=== PATIENT | female | born 2000 | race Hispanic/Latino ===

== ENCOUNTER 2020-03-12 15:34 | Emergency (ER) | payer BC, OTHER ==
[2020-03-12] MEDS ORDERED: LIDOCAINE 1% 20 ML MDV ONE (16:27)
--- NOTE | 2020-03-12 17:02 | ER ---
Nurse's Notes [facility] Name: Melissa Jackson Age: 19 yrs Sex: Female : 2000 Arrival Date: 03/12/2020 Time: 15:36 Bed 6 Private MD: Diagnosis: Laceration of the Right Thigh Presentation: 03/12 15:50 Chief complaint: Patient states: "I was cutting foam board with an exacto knife and jd3 accidently cut my right leg.". Coronavirus screen: At this time, the client does not indicate any symptoms associated with coronavirus-19. Ebola Screen: Patient negative for fever greater than or equal to 101.5 degrees Fahrenheit, and additional compatible Ebola Virus Disease symptoms. Complicating Factors: There are no complicating factors for this patient. Initial Sepsis Screen: Does the patient meet any 2 criteria? No. Patient's initial sepsis screen is negative. Does the patient have a suspected source of infection? No. Patient's initial sepsis screen is negative. Risk Assessment: Do you want to hurt yourself or someone else? Patient reports no desire to harm self or others. Onset of symptoms was March 12, 2020. 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 - Social history:: Smoking status: Patient denies any tobacco usage or history of. Screenin:00 Abuse screen: Denies threats or abuse. Denies injuries from another. Nutritional jl7 screening: No deficits noted. Tuberculosis screening: No symptoms or risk factors identified. Fall Risk None identified. Assessment: 16:00 General: Appears in no apparent distress. uncomfortable, Behavior is calm, cooperative, jl7 appropriate for age. Pain: Complains of pain in right quadriceps Pain currently is 1 out of 10 on a pain scale. Neuro: Level of Consciousness is awake, alert, obeys commands, Oriented to person, place, time, situation. Cardiovascular: Patient's skin is warm and dry. Respiratory: Airway is patent Respiratory effort is even, unlabored, Respiratory pattern is regular, symmetrical. Derm: Skin is pink, warm \\T\\ dry. Musculoskeletal: Range of motion: intact in all extremities. Injury Description: Laceration sustained to right quadriceps is superficial, 2.6 to 7.5 cm long, was sustained 30-60 minutes ago. is bleeding no active bleeding noted. Vital Signs: 15:52 BP 101 / 75; Pulse 67; Resp 17 S; Temp 98.7(O); Pulse Ox 97% on R/A; Weight 84.82 kg jd3 (R); Height 5 ft. 6 in. (167.64 cm) (R); Pain /10; 15:52 Body Mass Index 30.18 (84.82 kg, 167.64 cm) jd3 ED Course: 15:36 Patient arrived in ED. ag5 15:51 Triage completed. jd3 15:52 Arm band placed on. jd3 15:57 Ted Hart PA is PHCP. [facility] 15:57 Obinna Bajwa MD is Attending Physician. [facility] 15:58 Luz Maria Alexander, RN is Primary Nurse. rb1 16:00 Patient has correct armband on for positive identification. Bed in low position. Call jl7 light in reach. Side rails up X 1. Pulse ox on. NIBP on. 16:17 Geneva Abdullahi, RN is Primary Nurse. jl7 16:30 Assist provider with laceration repair on right quadriceps that was between 2.6 to 7.5 jl7 cm using sutures. Set up tray. Performed by Ted PÉREZ Dressed with band aid, Patient tolerated well. 17:06 Patient did not have IV access during this emergency room visit. jl7 Administered Medications: 16:30 Drug: Lidocaine (1 %) 20 ml {Note: administered by BETO Jean.} Volume: 20 ml; Route: jl7 Infiltration; 17:10 Follow up: Response: No adverse reaction jl7 Outcome: 17:02 Discharge ordered by . julianna 17:09 Discharged to home ambulatory, with family. jl7 17:09 Condition: stable 17:09 Discharge instructions given to patient, family, Instructed on discharge instructions, follow up and referral plans. Demonstrated understanding of instructions, follow-up care. 17:10 Patient left the ED. jl7 Signatures: Ted Hart PA PA jmm Barber, Rebecca RN RN rb1 Geneva Abdullahi RN RN jl7 Shady Lamb RN RN jd3 Jaspreet, [facility]
--- NOTE | 2020-03-12 17:02 | EDPHYS ---
Physician Documentation [facility] Name: Melissa Jackson Age: 19 yrs Sex: Female : 2000 Arrival Date: 03/12/2020 Time: 15:36 Bed 6 Private MD: ED Physician Obinna Bajwa HPI: 03/12 16:04 This 19 yrs old Female presents to ER via Wheelchair with complaints of jmm Laceration To Leg. 16:04 The patient has a laceration occurred at home. Onset: The symptoms/episode jmm began/occurred acutely, just prior to arrival. Associated signs and symptoms: Pertinent positives: Pertinent negatives: dizziness, heavy bleeding, loss of consciousness. This is a 19 year old female with no chronic medical conditions that presents to the ED with complaints of laceration to her right thigh. Patient states she accidently cut her self with an exacto knife. . 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 - Social history:: Smoking status: Patient denies any tobacco usage or history of. ROS: 16:04 Constitutional: Negative for fever, chills, and weight loss, Cardiovascular: Negative jmm for chest pain, palpitations, and edema, Respiratory: Negative for shortness of breath, cough, wheezing, and pleuritic chest pain. 16:04 MS/extremity: Positive for injury or acute deformity, laceration. 16:04 Skin: Positive for laceration(s). 16:04 All other systems are negative. Exam: 16:04 Constitutional: This is a well developed, well nourished patient who is awake, alert, jmm and in no acute distress. Head/Face: atraumatic. Eyes: EOMI, no conjunctival erythema appreciated ENT: Moist Mucus Membranes Neck: Trachea midline, Supple Chest/axilla: Normal chest wall appearance and motion. Cardiovascular: Regular rate and rhythm. No edema appreciated Respiratory: Normal respirations, no respiratory distress appreciated Abdomen/GI: Non distended, soft Back: Normal ROM 16:04 Musculoskeletal/extremity: ROM: intact in all extremities. 16:04 Skin: 4 cm laceration noted to the right thigh. 16:04 Neuro: Orientation: is normal, Mentation: is normal, Memory: is normal. 16:04 Psych: Behavior/mood is pleasant, cooperative. Vital Signs: 15:52 BP 101 / 75; Pulse 67; Resp 17 S; Temp 98.7(O); Pulse Ox 97% on R/A; Weight 84.82 kg jd3 (R); Height 5 ft. 6 in. (167.64 cm) (R); Pain /10; 15:52 Body Mass Index 30.18 (84.82 kg, 167.64 cm) jd3 Laceration: 17:00 Wound Repair of 4cm ( 1.6in ) subcutaneous laceration to right quadriceps. Distal jmm neuro/vascular/tendon intact. Anesthesia: Local anesthetic administered with 5 mls of 1% lidocaine. Wound prep: Moderate cleansing with betadine by me. Skin closed with 5 4-0 Prolene using simple sutures and sterile technique. Patient tolerated well. MDM: 16:04 Patient medically screened. [facility] 17:00 Data reviewed: vital signs, nurses notes. Counseling: I had a detailed discussion with julianna the patient and/or guardian regarding: the historical points, exam findings, and any diagnostic results supporting the discharge/admit diagnosis, the need for outpatient follow up, to return to the emergency department if symptoms worsen or persist or if there are any questions or concerns that arise at home. ED course: Patient is alert and non toxic in appearance in the ED. Mother and patient given strict return precautions. Mother understood and agrees with the plan of care. . 03/12 16:20 Order name: Dressing - Wound; Complete Time: 16:20 jl7 03/12 16:20 Order name: Gloves, Sterile; Complete Time: 16:20 jl7 03/12 16:20 Order name: Setup Suture Tray; Complete Time: 16:20 jl7 Administered Medications: 16:30 Drug: Lidocaine (1 %) 20 ml {Note: administered by PA. Ted} Volume: 20 ml; Route: jl7 Infiltration; 17:10 Follow up: Response: No adverse reaction jl7 Disposition: 03/13 07:15 Co-signature as Attending Physician, Obinna Bajwa MD I agree with the assessment and irwin plan of care. Disposition: 03/12/20 17:02 Discharged to Home. Impression: Laceration of the Right Thigh. - Condition is Stable. - Discharge Instructions: Laceration Care, Adult. - Medication Reconciliation Form, Thank You Letter, Antibiotic Education, Prescription Opioid Use form. - Follow up: Private Physician; When: 1 week; Reason: Recheck today's complaints, Continuance of care, Staple/Suture removal, Re-evaluation by your physician. Signatures: Obinna Bajwa MD MD cha Mickail, Joel, PA PA jmm Leal, Jahala RN RN jl7 Shady Lamb RN RN jd3 Corrections: (The following items were deleted from the chart) 03/12 17:10 17:02 03/12/2020 17:02 Discharged to Home. Impression: Laceration of the Right Thigh. jl7 Condition is Stable. Forms are Medication Reconciliation Form, Thank You Letter, Antibiotic Education, Prescription Opioid Use. Follow up: Private Physician; When: 1 week; Reason: Recheck today's complaints, Continuance of care, Staple/Suture removal, Re-evaluation by your physician. julianna
[2020-03-12 17:21] VITALS: BP 101/75; TEMP 98.7; O2SAT 97
--- OUTSIDE RECORDS SUMMARY | 2020-03-16 01:23 | XMS REPORT | Summary of Care ---
:2000 Author Organization [facility] Address [address] [place] [id number] Care Team Providers Name Role Phone Pcp, Does Not Have A Primary Care Provider Reason for Visit Reason Comments Exposure LAB Encounter Details Date Type Department Care Team Description 12/17/2019 Laboratory Only [facility] Family Orestes Mendoza, RECEPTION AGENT [address] [place] [address] Suspected 2019 [facility] - [facility], Adc Fam Pob I Coronavirus [address] [facility] Infection ([address] Dx) [place] [address] Allergies Not on Filedocumented as of this encounter (statuses as of 12/17/2019) Medications Not on filedocumented as of this encounter (statuses as of 12/17/2019) Active Problems Not on filedocumented as of this encounter (statuses as of 12/17/2019) Social History Tobacco Use Types Packs/Day Years Used Date Never Assessed Sex Assigned at Date Recorded Not on file Job Start Date Occupation Industry Not on file Not on file Not on file Travel History Travel Start Travel End No recent travel history available. COVID-19 Exposure Response Date Recorded In the last month, have you been in contact with Yes 12/17/2019 2:13 PM CDT someone who was confirmed or suspected to have Coronavirus / COVID-19? documented as of this encounter Last Filed Vital Signs Not on filedocumented in this encounter Plan of Treatment Name Type Priority Associated Diagnoses Order S nielsle COVID-19 (PCR MOLECULAR LAB Routine Suspected 2019 No elizabeth Ordered: 12/17/2019 TESTING) Coronavirus Infection Health Maintenance Due Date Last Done Comments VARICELLA VACCINES (1 of 2 - 2-dose 08/27/2000 childhood series) MENINGOCOCCAL B VACCINES (1 of 2 - 08/27/2009 Risk Bexsero 2-dose series) DTaP,Tdap,and Td Vaccines (1 - 08/27/2010 Tdap) HPV VACCINES (1 - Female 2-dose 08/27/2010 series) Depression Screening 2011 WELL CARE VISIT: 12-21 YEARS 2011 (yearly) CHLAMYDIA SCREENING 2015 INFLUENZA VACCINE (#1) 2020 MENINGOCOCCAL VACCINE Aged Out No longer eligible based on patient's age to complete this topic PNEUMOCOCCAL 0-64 YEARS COMBINED Aged Out No longer eligible based on SERIES patient's age to complete this topic documented as of this encounter Results Not on filedocumented in this encounter Visit Diagnoses Diagnosis Suspected 2018 Novel Coronavirus Infecti on - Primary documented in this encounter documented as of this encounter
--- OUTSIDE RECORDS SUMMARY | 2020-03-16 01:23 | XMS REPORT | Continuity of Care Document ---
:2000 Author Organization [facility] t Address [address] [place] [address] [address] [place] [address] Care Team Providers Name Role Phone Lab, Swapnil Pob I Attending Clinician Unavailable Problems This patient has no known problems. Allergies, Adverse Reactions, Alerts This patient has no known allergies or adverse reactions. Medications This patient has no known medications. Procedures This patient has no known procedures. Encounters Start End Encounter Admission Attending Care Care Encounter Source Date/Time Date/Time Type Type Clinicians Facility Department ID 2019-12-17 2019-12-17 Laboratory Lab, [facility] [id number] 14:14:53 14:34:53 Only Fam Pob I [facility] [id number] [place] [id number] Marie [phone] nal [address] Results This patient has no known results.
== END 2020-03-12 17:10 | disposition home or self-care (01) ==
LOC: ER 15:34
PROC: 0JQL0ZZ Repair Right Upper Leg Subcutaneous Tissue and Fascia, Open Approach (ICD-10-PCS; principal; 2020-03-12)
DX: S71.111A Laceration without foreign body, right thigh, initial encounter (principal); W26.0XXA Contact with knife, initial encounter; Y93.9 Activity, unspecified; Y92.009 Unspecified place in unspecified non-institutional (private) residence as the place of occurrence of the external cause
CPT/HCPCS: 99283

== ENCOUNTER 2020-09-01 16:33 | Emergency (ER) | payer BC, OTHER ==
--- OUTSIDE RECORDS SUMMARY | 2020-09-01 16:36 | XMS REPORT | Continuity of Care Document ---
:2000 Author Organization [facility] t Address [address] [place] [address] [address] [place] [address] Care Team Providers Name Role Phone Lab, Fam Pob I Attending Clinician Unavailable Problems This patient has no known problems. Allergies, Adverse Reactions, Alerts This patient has no known allergies or adverse reactions. Medications This patient has no known medications. Procedures This patient has no known procedures. Encounters Start End Encounter Admission Attending Care Care Encounter Source Date/Time Date/Time Type Type Clinicians Facility Department ID 2020-05-10 2020-05-10 Laboratory Lab, [facility] [id number] 18:40:21 19:00:21 Only Fam Pob I [facility] [id number] [place] [id number] [facility] [phone] nal [address] 2019-12-17 2019-12-17 Laboratory Lab, [facility] [id number] 14:14:53 14:34:53 Only Fam Pob I [facility] [id number] [place] [id number] [facility] [phone] nal 0[address] One Results This patient has no known results.
[2020-09-01 20:36] LABS: Absolute Lymphocytes (CBC) 1.2 K/uL (0.7-4.9); Basophils % 0.9 % (0-1.3); Hematocrit 40.6 % (36.0-45.0); Lymphocytes % 28.5 % (15.3-44.8); RBC Red Blood Cell Count 4.94 M/uL (3.86-4.86)
[2020-09-01] MEDS ORDERED: ONDANSETRON 4 MG/2 ML VIAL ONE (20:45)
[2020-09-01] MEDS ORDERED: FAMOTIDINE 20 MG/2 ML VIAL IV ONE (20:45)
[2020-09-01] MEDS ORDERED: NA CHLORIDE 0.9% 1,000 ML ONE (20:46)
--- NOTE | 2020-09-01 21:05 | RAD REPORT ---
EXAM DESCRIPTION: US - Abdomen Exam Limited - 09/01/2020 8:49 pm CLINICAL HISTORY: Abdominal pain. COMPARISON: None. FINDINGS: Multiple gallstones. The gallbladder wall is not thickened The biliary tree is normal caliber. IMPRESSION: Cholelithiasis without evidence of cholecystitis
[2020-09-01 21:14] LABS: Albumin 3.8 g/dL (3.4-5.0); Bilirubin Direct 0.6 mg/dL (0-0.2); Bilirubin Total 1.2 mg/dL (0.2-1.0); Potassium 3.7 mmol/L (3.5-5.1); Protein, Total 7.7 g/dL (6.4-8.2)
[2020-09-01] MEDS ORDERED: MAGNES/ALUMIN/SIMET 30ML UCUP ONE (21:43)
[2020-09-01] MEDS ORDERED: LIDOCAINE VISCOUS 2% SOLN 15 ML UDC ONE (21:43)
[2020-09-01 22:03] LABS: Urine Blood TRACE (Negative); Urine Glucose NEGATIVE (Negative); Urine Protein NEGATIVE (NEG)
--- NOTE | 2020-09-01 22:33 | ER ---
Nurse's Notes [facility] Name: Melissa Jackson Age: 20 yrs Sex: Female : 2000 Arrival Date: 09/01/2020 Time: 16:38 Bed 5 Private MD: Diagnosis: Abnormal results of liver function studies;Epigastric pain;Cholelithiasis-with possible choledocholithiasis Presentation: 09/01 16:53 Chief complaint: Patient states: Epigastric pain for 2 days. Went to see her doctor Matti Randolph, had blood work drawn here at our hospital. Liver and bilirubin levels are elevated, WBC level low. Sent in for evaluation and CT scan. Coronavirus screen: Client denies travel out of the [place] in the last 14 days. At this time, the client does not indicate any symptoms associated with coronavirus-19. Ebola Screen: Patient denies travel to an Ebola-affected area in the 21 days before illness onset. Initial Sepsis Screen: Does the patient meet any 2 criteria? No. Patient's initial sepsis screen is negative. Does the patient have a suspected source of infection? Yes: Acute abdominal pain. Risk Assessment: Do you want to hurt yourself or someone else? Patient reports no desire to harm self or others. Onset of symptoms was August 31, 2020. 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 - Social history:: Smoking status: Patient denies any tobacco usage or history of. Screenin:59 Abuse screen: Denies threats or abuse. Denies injuries from another. Nutritional mg2 screening: No deficits noted. Tuberculosis screening: No symptoms or risk factors identified. Fall Risk IV access (20 points). Assessment: 20:40 General: Appears in no apparent distress. comfortable, Behavior is calm, cooperative. mg2 Pain: Complains of pain in abdomen. Neuro: Level of Consciousness is awake, alert, obeys commands, Oriented to person, place, time, situation. Cardiovascular: Capillary refill < 3 seconds Patient's skin is warm and dry. Respiratory: Airway is patent Respiratory effort is even, unlabored, Respiratory pattern is regular, symmetrical. GI: Reports lower abdominal pain, upper abdominal pain. EENT: No signs and/or symptoms were reported regarding the EENT system. Derm: Skin is intact, is healthy with good turgor, Skin is pink, warm \T\ dry. normal. Musculoskeletal: Circulation, motion, and sensation intact. Capillary refill < 3 seconds. 22:00 Reassessment: Patient appears in no apparent distress at this time. Patient and/or mg2 family updated on plan of care and expected duration. Pain level reassessed. Patient is alert, oriented x 3, equal unlabored respirations, skin warm/dry/pink. 09/02 02:02 Reassessment: patient waiting for transfer. mg2 02:14 Reassessment: report given to RISHABH Teague of [facility]. mg2 02:45 Reassessment: report given to EMS. patient in good condition, IV Intact. mg2 Vital Signs: 09/01 16:53 BP 109 / 78; Pulse 92; Resp 17; Temp 98.5; Pulse Ox 100% ; Weight 79.38 kg; Height 5 ll1 ft. 5 in. (165.10 cm); Pain 2/10; 19:11 Resp 16; Temp 98.1; ll1 22:00 BP 106 / 75; Pulse 79; Resp 18; Pulse Ox 100% on R/A; mg2 09/02 01:12 BP 103 / 76; Pulse 77 MON; Resp 18 S; Temp 98.1; Pulse Ox 100% on R/A; sg 02:02 BP 113 / 74; Pulse 80; Resp 18; Temp 98; Pulse Ox 100% on R/A; mg2 09/01 16:53 Body Mass Index 29.12 (79.38 kg, 165.10 cm) ll1 ED Course: 09/01 16:38 Patient arrived in ED. mr 16:55 Triage completed. ll1 16:56 Arm band placed on. ll1 20:00 Obinna Mckeon PA is PHCP. cp 20:00 Akash Arteaga MD is Attending Physician. cp 20:14 Reid Bruno RN is Primary Nurse. mg2 20:40 Inserted saline lock: 20 gauge in right antecubital area, using aseptic technique. mg2 Blood collected. 20:49 US Abdomen Limited: epigastric pain In Process Unspecified. EDMS 21:58 No provider procedures requiring assistance completed. mg2 21:59 Patient has correct armband on for positive identification. mg2 22:36 CT Abd/Pelvis - IV Contrast Only: elevated liver enzymes In Process Unspecified. EDMS 23:45 initiated a transfer with Jerri Galeano from [facility]. [facility] 09/02 01:58 administrative approval given by Jerri Galeano/ patient has been accepted to [address] 5th floor bed 501/ Dr. Vee has accepted the patient in transfer/ report to be called to [phone]. 02:50 IV discontinued, intact, bleeding controlled, No redness/swelling at site. Pressure mg2 dressing applied. Administered Medications: 09/01 20:42 Drug: Pepcid (famotidine) 20 mg Route: IVP; Site: right antecubital; mg2 20:43 Drug: NS 0.9% 1000 ml Route: IV; Rate: 1 bolus; Site: right antecubital; mg2 20:43 Drug: Zofran (Ondansetron) 4 mg Route: IVP; Site: right antecubital; mg2 21:29 Drug: GI Cocktail without - (Maalox Suspension 30 ml, Lidocaine Liquid 2 % 15 rv ml) Route: PO; 09/02 02:02 Drug: NS 0.9% 1000 ml Route: IV; Rate: 125 ml/hr; Site: right antecubital; mg2 02:40 Drug: fentaNYL (PF) 25 mcg Route: IVP; Site: right antecubital; mg2 Outcome: 09/01 22:32 ER care complete, transfer ordered by MD. cardoso 09/02 02:48 Transferred by ground EMS to other acute care facility: [facility]. mg2 Condition: stable Instructed on the need for transfer, Demonstrated understanding of instructions. 02:50 Patient left the ED. mg2 Signatures: Dispatcher [employer] EDMS Lalo Broussard RN Amelia Casey mr Obinna Mckeon PA PA cp Jayne Cárdenas [facility] Reid Bruno RN RN mg2 Bart Hebert RN RN rv Lewis, Lynsay, RN RN ll1 Corrections: (The following items were deleted from the chart) 02:50 02:14 Reassessment: report given to RISHABH Teague of [place] [id number]
--- NOTE | 2020-09-01 22:33 | EDPHYS ---
Physician Documentation [facility] Name: Melissa Jackson Age: 20 yrs Sex: Female : 2000 Arrival Date: 09/01/2020 Time: 16:38 Bed 5 Private MD: ED Physician Akash Arteaga HPI: 09/01 20:20 This 20 yrs old Female presents to ER via Ambulatory with complaints of cp Abnormal Lab Results. 20:20 The patient presents with abdominal pain in the epigastric area. cp 20:20 Onset: The symptoms/episode began/occurred yesterday. The symptoms radiate to back. cp Associated signs and symptoms: Pertinent negatives: chest pain, constipation, diarrhea, fever, vomiting. The symptoms are described as constant, improving. 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 - Social history:: Smoking status: Patient denies any tobacco usage or history of. ROS: 20:25 Constitutional: Negative for body aches, chills, fever, poor PO intake. cp 20:25 Eyes: Negative for injury, pain, redness, and discharge. cp 20:25 Cardiovascular: Negative for chest pain, palpitations. 20:25 Respiratory: Negative for cough, shortness of breath. 20:25 Abdomen/GI: Positive for abdominal pain, nausea, Negative for vomiting, diarrhea, constipation, black/tarry stool, rectal bleeding. 20:25 Back: Positive for radiated pain. 20:25 All other systems are negative. Exam: 20:35 Constitutional: The patient appears in no acute distress, alert, awake, non-toxic, well cp developed, well nourished. 20:35 Head/Face: Normocephalic, atraumatic. cp 20:35 Eyes: Periorbital structures: appear normal, Conjunctiva: normal, no exudate, no injection, Sclera: no appreciated abnormality, Lids and lashes: appear normal, bilaterally. 20:35 ENT: External ear(s): are unremarkable, Nose: is normal, Mouth: Lips: moist, Oral mucosa: moist, Posterior pharynx: Airway: no evidence of obstruction, patent. 20:35 Chest/axilla: Inspection: normal, Palpation: is normal, no crepitus, no tenderness. 20:35 Cardiovascular: Rate: normal, Rhythm: regular. 20:35 Respiratory: the patient does not display signs of respiratory distress, Respirations: normal, no use of accessory muscles, no retractions, labored breathing, is not present, Breath sounds: are clear throughout, no decreased breath sounds. 20:35 Abdomen/GI: Inspection: abdomen appears normal, Bowel sounds: active, all quadrants, Palpation: soft, in all quadrants, mild abdominal tenderness, in the epigastric area and right upper quadrant, rebound tenderness, is not appreciated, involuntary guarding, is not appreciated. 20:35 Back: CVA tenderness, is absent. Vital Signs: 16:53 BP 109 / 78; Pulse 92; Resp 17; Temp 98.5; Pulse Ox 100% ; Weight 79.38 kg; Height 5 ll1 ft. 5 in. (165.10 cm); Pain 2/10; 19:11 Resp 16; Temp 98.1; ll1 22:00 BP 106 / 75; Pulse 79; Resp 18; Pulse Ox 100% on R/A; mg2 09/02 01:12 BP 103 / 76; Pulse 77 MON; Resp 18 S; Temp 98.1; Pulse Ox 100% on R/A; sg 02:02 BP 113 / 74; Pulse 80; Resp 18; Temp 98; Pulse Ox 100% on R/A; mg2 09/01 16:53 Body Mass Index 29.12 (79.38 kg, 165.10 cm) ll1 MDM: 08/31 21:00 Differential diagnosis: cholecystitis, Cholelithiasis, gastritis, non-specific abd cp pain, pancreatitis, Peptic Ulcer Disease, Perf. Duodenal Ulcer, Perf. Gastric Ulcer, choledocholithiasis. 09/01 20:11 Patient medically screened. cp 21:54 Physician consultation: Zane Brooks MD was called at 21:54, was contacted at 21:55, regarding patient's condition, after a discussion of the case, a recommendation for transfer for higher level of care is made, due to GI not being available. 09/02 01:35 Data reviewed: vital signs, nurses notes, lab test result(s), radiologic studies, CT cp scan, ultrasound. Physician consultation: was contacted at 01:35, regarding regarding transfer, [facility] accepting physician will be DR Vee, hospitalist. 09/01 20:11 Order name: Basic Metabolic Panel; Complete Time: 21:49 cp 09/01 21:49 Interpretation: Normal except: CL 108; GFR 84. 09/01 20:11 Order name: CBC with Diff; Complete Time: 21:13 cp 09/01 21:13 Interpretation: Normal except: WBC 4.20; RBC 4.94. cp 09/01 20:11 Order name: Hepatic Function; Complete Time: 21:49 cp 09/01 21:50 Interpretation: Normal except: AST 400; ALT 527; ALK 169; BILIT 1.2; BILID 0.6; GLOB cp 3.9; A/G 1.0. 09/01 20:11 Order name: Lipase; Complete Time: 21:49 09/01 21:14 Order name: Urine Dipstick--Ancillary (enter results); Complete Time: 22:04 09/01 21:14 Order name: Urine --Ancillary (enter results); Complete Time: 22:04 09/01 20:20 Order name: US Abdomen Limited: epigastric pain; Complete Time: 21:13 09/01 21:13 Interpretation: Report reviewed. 09/01 21:50 Order name: CT Abd/Pelvis - IV Contrast Only: elevated liver enzymes 09/01 22:25 Order name: COVID-19 : Document "Date of Symptom Onset" if Symptomatic. 09/01 23:28 Order name: SARS-COV-2 RT PCR; Complete Time: 01:06 EDND 09/02 01:09 Interpretation: Results reviewed. 09/01 20:11 Order name: IV Saline Lock; Complete Time: 20:24 cp 09/01 20:11 Order name: Labs collected and sent; Complete Time: 20:24 cp 09/01 20:20 Order name: Urine Test (obtain specimen); Complete Time: 20:43 cp 09/01 20:20 Order name: Urine Dipstick-Ancillary (obtain specimen); Complete Time: 20:43 cp Administered Medications: 09/01 20:42 Drug: Pepcid (famotidine) 20 mg Route: IVP; Site: right antecubital; mg2 20:43 Drug: NS 0.9% 1000 ml Route: IV; Rate: 1 bolus; Site: right antecubital; mg2 20:43 Drug: Zofran (Ondansetron) 4 mg Route: IVP; Site: right antecubital; mg2 21:29 Drug: GI Cocktail without - (Maalox Suspension 30 ml, Lidocaine Liquid 2 % 15 rv ml) Route: PO; 09/02 02:02 Drug: NS 0.9% 1000 ml Route: IV; Rate: 125 ml/hr; Site: right antecubital; mg2 02:40 Drug: fentaNYL (PF) 25 mcg Route: IVP; Site: right antecubital; mg2 Disposition: 05:47 Co-signature as Attending Physician, Akash Arteaga MD. ri2 Disposition: 09/01/20 22:32 Transfer ordered to [facility]. Diagnosis are Abnormal results of liver function studies, Epigastric pain, Cholelithiasis - with possible choledocholithiasis. - Reason for transfer: Higher level of care. - Accepting physician is DR Vee. - Condition is Stable. - Problem is new. - Symptoms have improved. Signatures: Dispatcher [employer] EDMS Obinna Mckeon PA PA cp Akash Arteaga MD MD ri2 Reid Bruno RN RN mg2 Bart Hebert RN RN rv Luis Baird RN RN ll1 Corrections: (The following items were deleted from the chart) 09/01 21:50 21:49 Normal except: AST 400; ALT 527; ALK 169; BILIT 1.2; BILID 0.6; GLOB 3.9. cp cp 22:45 22:25 CORONAVIRUS ordered. EDND EDMS 09/02 01:37 09/01 22:32 09/01/2020 22:32 Transfer ordered to [facility]. cp Diagnosis is Abnormal results of liver function studies; Epigastric pain; Possible choledocholithiasis. Reason for transfer: Higher level of care. Accepting physician is Doctor. Condition is Stable. Problem is new. Symptoms have improved. cp 09/02 02:50 01:37 09/01/2020 22:32 Transfer ordered to [facility]. mg2 Diagnosis is Abnormal results of liver function studies; Epigastric pain; Cholelithiasis - with possible choledocholithiasis. Reason for transfer: Higher level of care. Accepting physician is DR Vee. Condition is Stable. Problem is new. Symptoms have improved. cp
[2020-09-02] MEDS ORDERED: FENTANYL CITR 100 MCG/2 ML ONE (02:14)
[2020-09-02] MEDS ORDERED: NA CHLORIDE 0.9% 1,000 ML ONE (02:15)
[2020-09-02 20:24] VITALS: O2SAT 100
[2020-09-02 20:30] VITALS: BP 113/74; TEMP 98
--- NOTE | 2020-09-02 20:40 | RAD REPORT ---
EXAM DESCRIPTION: CT - Abdomen Pelvis W Contrast - 09/02/2020 6:32 am CLINICAL HISTORY: Epigastric pain. Abnormal liver enzymes. COMPARISON: None. TECHNIQUE: CT scan of the abdomen and pelvis was performed with IV contrast. This exam was performed according to our departmental dose-optimization program, which includes automated exposure control, adjustment of the mA and/or kV according to patient size and/or use of iterative reconstruction techn ique. FINDINGS: The lung bases are clear. No pleural or pericardial effusions are seen. There is no hiatal hernia. The liver, spleen, pancreas, gallbladder, adrenal glands, and kidneys are unremarkable. No urinary st ones are seen. There is no hydronephrosis. There is circumferential wall thickening of the urinary bl adder. There is a 3.5 cm right ovarian cyst The stomach and duodenum are unremarkable. No small bowel obstruction is seen. The appendix is unrema rkable. There is no evidence of acute diverticulitis. No intraperitoneal adenopathy, free fluid, or f ree air is identified. The aorta is normal caliber. No acute bony findings are seen. There is no pathologic body wall hernia . IMPRESSION: No acute abdominal or pelvic findings. Electronically signed by: Jean Paul Hui MD 09/01/2020 10:52 PM CDT Due to temporary technical issues with the PACS/Fluency reporting system, reports are being signed by the in house radiologists without review as a courtesy to insure prompt reporting. The interpreting radiologist is fully responsible for the content of the report.
== END 2020-09-02 02:50 | disposition short-term general hospital (02) ==
LOC: ER 16:33
DX: K80.20 Calculus of gallbladder without cholecystitis without obstruction (principal); R10.13 Epigastric pain; Z20.822 Contact with and (suspected) exposure to COVID-19
CPT/HCPCS: 85025; 80048; 36415; 81025; 80076; 81003; 83690; 74177; 76705; 96375; 96374; 99285; U0003; Q9967; J3010; J7030 ×2; J2405